=== PATIENT | male | born 1945 | race Asian ===

== ENCOUNTER 2017-03-12 11:18 | Inpatient (IN) | payer OTHER ==
[~2017-03-12] VITALS: Ht 170.2 cm; Wt 57.0 kg
[2017-03-12 12:42] LABS: CALCIUM 7.6 mg/dL (8.5-10.1); CARBON DIOXIDE 22.9 mmol/L (21-32); CHLORIDE SERUM 106 mmol/L (98-107); CREATININE SERUM 1.6 mg/dL (0.7-1.3); GFR1 46 mL/min; GLUCOSE SERUM 108 mg/dL (74-106); POTASSIUM SERUM 4.4 mmol/L (3.5-5.1); SODIUM SERUM 138 mmol/L (136-145)
[2017-03-12 12:47] LABS: ALKALINE PHOSPHATASE 67 U/L (46-116); ALT/SGPT 24 U/L (16-63); AST/SGOT 59 U/L (15-37); BILIRUBIN TOTAL 1.07 mg/dL (0.20-1.00); TOTAL PROTEIN, SERUM 6.4 g/dL (6.4-8.2)
[2017-03-12 12:48] LABS: ALBUMIN 2.5 g/dL (3.4-5.0); CHOLESTEROL 87 mg/dL (<200)
[2017-03-12 13:01] LABS: BASOPHIL % 0.4 % (0-2)
[2017-03-12 13:07] LABS: PLATELET COUNT 122 x10^3mcL (130-400); RED CELL DISTRIBUTION WIDTH 18.7 % (11.5-14.5)
[2017-03-12 14:43] LABS: CHOLESTEROL/HDL RATIO 3.6
[2017-03-12 14:49] LABS: T3 TOTAL 1.01 ng/mL
[2017-03-12 14:52] LABS: FREE T4 1.09 ng/dL (0.76-1.46); FREE THYROXINE INDEX 2.6 ug/dL (1.4-4.5); T4(THYROXINE) 7.3 ug/dL (4.7-13.3)
[2017-03-12 14:56] LABS: MAGNESIUM 2.2 mg/dL (1.8-2.4); PHOSPHOROUS 3.4 mg/dL (2.5-4.9)
[2017-03-12 14:59] VITALS: BP 151/75
[2017-03-12 16:25] LABS: TOTAL IRON BINDING CAPACITY 354 ug/dL (250-450)
[2017-03-12 16:27] LABS: IRON 11 ug/dL (65-170)
[2017-03-12 16:53] LABS: RED BLOOD CELLS 1.79 M/mm3 (4.52-5.90)
[2017-03-12 17:55] VITALS: BP 116/63
[2017-03-12 20:25] VITALS: BP 157/89
[2017-03-12 22:19] LABS: UA SPECIFIC GRAVITY 1.025 (1.005-1.035); microscopic required? YES; urine erythrocyte 1+ (NEGATIVE)
[2017-03-13] VITALS (7 sets, daily range): BP systolic 128–144; BP diastolic 70–81
[2017-03-13 06:03] LABS: BASOPHIL % 0.6 % (0-2)
[2017-03-13 06:23] LABS: CALCIUM 7.5 mg/dL (8.5-10.1); CARBON DIOXIDE 24.3 mmol/L (21-32); CREATININE SERUM 1.7 mg/dL (0.7-1.3); POTASSIUM SERUM 4.3 mmol/L (3.5-5.1)
[2017-03-13 07:12] LABS: PLATELET COUNT 97 x10^3mcL (130-400); RED CELL DISTRIBUTION WIDTH 16.9 % (11.5-14.5)
[2017-03-13] MEDS ORDERED: LOP600 PO (12:54)
[2017-03-13] MEDS ORDERED: PROT40I IV (12:55)
[2017-03-13] MEDS ORDERED: APAP/HYDROCODON1 T13 PO (12:55)
[2017-03-13] MEDS ORDERED: COL100 PO (12:56)
== END 2017-03-13 18:36 | disposition short-term general hospital (02) | DRG 377 ==
LOC: ED 11:18 → DU 13:53
PROVIDERS: Internal Medicine; Specialist; ADMIT Family Medicine
PROC: 30233N1 Transfusion of Nonautologous Red Blood Cells into Peripheral Vein, Percutaneous Approach (ICD-10-PCS; principal; 2017-03-12)
PROC: 0DJD8ZZ Inspection of Lower Intestinal Tract, Via Natural or Artificial Opening Endoscopic (ICD-10-PCS; 2017-03-13)
PROC: 0DB68ZX Excision of Stomach, Via Natural or Artificial Opening Endoscopic, Diagnostic (ICD-10-PCS; 2017-03-13 11:00)
PROC: 0DB98ZX Excision of Duodenum, Via Natural or Artificial Opening Endoscopic, Diagnostic (ICD-10-PCS; 2017-03-13 11:00)
DX: K92.1 Melena (principal); E43 Unspecified severe protein-calorie malnutrition; K85.90 Acute pancreatitis without necrosis or infection, unspecified; D62 Acute posthemorrhagic anemia; Z68.1 Body mass index [BMI] 19.9 or less, adult; D61.818 Other pancytopenia; B18.1 Chronic viral hepatitis B without delta-agent; K22.10 Ulcer of esophagus without bleeding; K29.70 Gastritis, unspecified, without bleeding; K57.30 Diverticulosis of large intestine without perforation or abscess without bleeding; M62.50 Muscle wasting and atrophy, not elsewhere classified, unspecified site; M19.90 Unspecified osteoarthritis, unspecified site; M1A.9XX0 Chronic gout, unspecified, without tophus (tophi); E78.5 Hyperlipidemia, unspecified; Z87.11 Personal history of peptic ulcer disease; Z87.891 Personal history of nicotine dependence
CPT/HCPCS: 43235; 45378; 83880; 84439; C9113; G0480; J1200; J1610; J1885; J2250; J2310; J3010; J3475; J3490; J7030; J7050; P9016; Q0092; Q0163

== ENCOUNTER 2018-11-18 10:41 | Emergency (ER) | payer OTHER ==
[~2018-11-18] VITALS: Ht 160 cm; Wt 47.6 kg
[~2018-11-18 10:41] MED LIST: APAP/HYDROCODON1 T13 PO; COL100 PO; LOP600 PO; PROT40I IV
[2018-11-18 10:44] VITALS: BP 128/82; Ht 160 cm; Wt 47.6 kg
== END 2018-11-18 12:15 | disposition home or self-care (01) ==
LOC: ED 10:41
DX: M13.872 Other specified arthritis, left ankle and foot (principal); R22.43 Localized swelling, mass and lump, lower limb, bilateral

== ENCOUNTER 2018-12-15 12:39 | Emergency (ER) | payer OTHER ==
[2018-12-15 13:50] VITALS: Ht 160 cm
[2018-12-15 14:45] LABS: BASOPHIL % 0.1 % (0-2)
[2018-12-15 14:46] LABS: PLATELET COUNT 122 x10^3mcL (130-400); RED CELL DISTRIBUTION WIDTH 15.4 % (11.5-14.5)
[2018-12-15 15:00] LABS: CALCIUM 7.2 mg/dL (8.5-10.1); CARBON DIOXIDE 30.7 mmol/L (21-32); CHLORIDE SERUM 92 mmol/L (98-107); CREATININE SERUM 1.2 mg/dL (0.7-1.3); GLUCOSE SERUM 101 mg/dL (74-106); POTASSIUM SERUM 3.2 mmol/L (3.5-5.1); SODIUM SERUM 131 mmol/L (136-145)
[2018-12-15 15:05] LABS: ALKALINE PHOSPHATASE 105 U/L (46-116); ALT/SGPT 22 U/L (16-63); AST/SGOT 76 U/L (15-37); BILIRUBIN TOTAL 1.6 mg/dL (0.20-1.00); TOTAL PROTEIN, SERUM 7.5 g/dL (6.4-8.2)
[2018-12-15 15:06] LABS: ALBUMIN 2.3 g/dL (3.4-5.0)
[2018-12-15 15:09] VITALS: BP 134/86
== END 2018-12-15 15:40 | disposition home or self-care (01) ==
LOC: ED 12:39
PROVIDERS: Emergency Medicine
DX: R60.0 Localized edema (principal); K70.30 Alcoholic cirrhosis of liver without ascites; Z98.890 Other specified postprocedural states
CPT/HCPCS: J1940; Q0092